=== PATIENT | female | born 1995 | race Caucasian/White ===

== ENCOUNTER 2017-11-09 12:14 | Emergency (ER) | payer OTHER ==
[2017-11-09 12:20] VITALS: BP 98/56
[2017-11-09] MEDS ORDERED: BACITRACIN ZINC OINTMENT 15 GM TP ONE (13:39)
[2017-11-09] MEDS ORDERED: IBUPROFEN 800 MG TABLET PO ONE (13:45)
--- NOTE | 2017-11-09 13:47 | ER Document Report ---
ED Burn/Smoke/Toxic Fumes - General Chief Complaint: Sunburn Stated Complaint: SUNBURN Time Seen by Provider: 11/09/17 13:32 Mode of Arrival: Ambulatory Information source: Patient Notes: 22-year-old female presented ED for sunburn to his face arms neck legs. She had first-degree leung with more severe first-degree leung to the legs. She states she put a sunscreen on yesterday morning and then fell asleep in the sun and did not have any more sunscreen put on. Patient alert and oriented, respirations regular and unlabored speaking in full sentences able to walk with a even steady gait but states that she does have much pain in her leung TRAVEL OUTSIDE OF THE [place] IN LAST 30 DAYS: No - HPI Patient complains to provider of: Other - Sunburn yesterday Onset: Yesterday Where: Outdoors - [place], Public place Quality of pain: Burning Severity: Moderate Pain Level: 2 Context: Other - Sun burn Associated Symptoms: None Other injuries: Face, LUE, LLE, RUE, RLE - Related Data Allergies/Adverse Reactions: No Known Allergies Allergy (Unverified 11/09/17 12:16) Past Medical History - General Information source: Patient - Social History Smoking Status: Never Smoker Cigarette use (# per day): No Chew tobacco use (# tins/day): No Smoking Education Provided: No Frequency of alcohol use: None Drug Abuse: None Lives with: Friend Family History: Reviewed & Not Pertinent Patient has suicidal ideation: No Patient has homicidal ideation: No - Past Medical History Cardiac Medical History: Reports: None Pulmonary Medical History: Reports: None EENT Medical History: Reports: None Neurological Medical History: Reports: None Endocrine Medical History: Reports: None Renal/ Medical History: Reports: None Malignancy Medical History: Reports: None GI Medical History: Reports: None Musculoskeltal Medical History: Reports None Skin Medical History: Reports None Psychiatric Medical History: Reports: None Traumatic Medical History: Reports: None Infectious Medical History: Reports: None Past Surgical History: Reports: Hx Section - Immunizations Immunizations up to date: Yes Review of Systems - Review of Systems Constitutional: No symptoms reported EENT: No symptoms reported Cardiovascular: No symptoms reported Respiratory: No symptoms reported Gastrointestinal: No symptoms reported Genitourinary: No symptoms reported Female Genitourinary: No symptoms reported Musculoskeletal: No symptoms reported Skin: Change in color, Other - Sunburn to the face neck arms and legs Hematologic/Lymphatic: No symptoms reported Neurological/Psychological: No symptoms reported -: Yes All other systems reviewed and negative Physical Exam - Vital signs Vitals: Temp Pulse Resp BP Pulse Ox 98.7 F 100 14 98/56 L 100 11/09/17 12:19 11/09/17 12:19 11/09/17 12:19 11/09/17 12:19 11/09/17 12:19 Interpretation: Normal - General General appearance: Appears well, Alert - HEENT Head: Normocephalic, Atraumatic Eyes: Normal Pupils: PERRL - Respiratory Respiratory status: No respiratory distress Chest status: Nontender Breath sounds: Normal Chest palpation: Normal - Cardiovascular Rhythm: Regular Heart sounds: Normal auscultation Murmur: No - Abdominal Inspection: Normal Distension: No distension Bowel sounds: Normal Tenderness: Nontender Organomegaly: No organomegaly - Back Back: Normal, Nontender - Extremities General upper extremity: Normal ROM, Normal temperature General lower extremity: Normal ROM, Normal temperature Shoulder: Tender, Other - Erythematous sunburn Arm: Tender, Other - Erythematous sunburn Elbow: Tender, Other - Erythematous sunburns Forearm: Tender Wrist: Tender, Other - Erythematous sunburns Hand: Tender, No evidence of human bite, No evidence of FB, Other - Erythematous sunburns Thigh: Tender, Other - Erythematous sunburns Knee: Tender, Other - Erythematous sunburns Calf: Tender, Other - Erythematous sunburns Foot: Tender, No evidence of FB, Other - First-degree degree burn - Neurological Neuro grossly intact: Yes Cognition: Normal Orientation: AAOx4 Meron Coma Scale Eye Opening: Spontaneous [place] Coma Scale Verbal: Oriented [place] Coma Scale Motor: Obeys Commands [place] Coma Scale Total: 15 Speech: Normal Motor strength normal: LUE, RUE, LLE, RLE Sensory: Normal - Psychological Associated symptoms: Normal affect, Normal mood - Skin Skin Temperature: Warm Skin Moisture: Dry Skin Color: Normal Course - Re-evaluation Re-evalutation: 11/09/17 18:40 Patient was treated with antibiotic ointment to her sunburns to the lower extremities. Patient was instructed to clean the area with mild soap and apply antibiotic ointment to the area for the next couple days to reduce the pain. Patient was also instructed to increase her p.o. fluids for at least the next 4- 5 days. - Vital Signs Vital signs: Temp Pulse Resp BP Pulse Ox 98.7 F 100 14 98/56 L 100 11/09/17 12:19 11/09/17 12:19 11/09/17 12:19 11/09/17 12:19 11/09/17 12:19 Discharge - Discharge Clinical Impression: Sunburn Condition: Stable Disposition: HOME, SELF-CARE Instructions: Family Physicians / Practices Additional Instructions: Sunburn Sunburn is caused by prolonged exposure to ultraviolet light. This can be natural sunlight or a tanning bed. Your symptoms may include redness or blistering of the skin, fatigue, weakness, and chills that last two or three days. Treatment includes antiinflammatory pain medication, rest, cooling baths, and moisturizing skin cream. Occasionally, cortisone-type medicine is required for severe sunburns. Antihistamines may be helpful if itching is severe as you heal. You should avoid any exposure to ultraviolet light for the next week or two so that further skin damage can be avoided. In the future, you should use sunscreens. Frequent or prolonged ultraviolet light exposure can cause premature skin aging, skin cancers, and wrinkles. Call the doctor if you are not improving in two or three days. Report any drainage, increasing swelling, fever, chills, or other signs of infection. Ibuprofen Ibuprofen is an excellent, safe drug for pain control. In addition, it has potent antiinflammatory effects which are beneficial, especially in the treatment of injuries, arthritis, or tendonitis. It's best to take ibuprofen with food. Persons with ulcer disease or allergy to aspirin should notify their physician of this before taking ibuprofen. Take the medication exactly as prescribed. Don't take additional doses unless instructed to do so by your doctor. If you develop wheezing, shortness of breath, hives, faintness, stomach pain, vomiting, or dark black stools, return for re-evaluation at once. Antibiotic Ointment Protection Your wounds are such that dressing them is not practical or optional. After cleansing, you should apply a thin coating of antibiotic ointment ( Bacitracin, not Neosporin) to the wounds at least three times daily. This lessens infection risk, and may decrease the amount of scarring. Use a q-tip or dull butter knife, not your finger, to apply this ointment. Any debris or ooze which builds up in the ointment should be gently rubbed off with a sterile gauze pad. Harder crusting may need to be gently scrubbed off with a clean wash cloth with soap and warm water, perhaps applying a warm, wet wash cloth to the wound for ten minutes first. Development of redness, severe itching, or blistering may mean allergy to the ointment. See the doctor. FOLLOW-UP CARE: If you have been referred to a physician for follow-up care, call the physician s office for an appointment as you were instructed or within the next two days. If you experience worsening or a significant change in your symptoms, notify the physician immediately or return to the Emergency Department at any time for re-evaluation. Prescriptions: Ibuprofen 800 mg PO Q8HP PRN #30 tablet PRN Reason: Bacitracin Zinc [Bacitracin Oint 15 gm] 1 applic TP DAILY #4 tube Forms: Return to Work
== END 2017-11-09 14:03 | disposition home or self-care (01) ==
LOC: ER 12:14
DX: L55.0 Sunburn of first degree (principal)
CPT/HCPCS: 99282; J3490